=== PATIENT | male | born 1945 | race Caucasian/White ===

== ENCOUNTER → 2018-07-15 | Day surgery (SDC) | payer MEDICARE ==
[~2018-07-15] MED LIST: ASPIRIN325 M2 PO; ATORVASTATIN CA20 MG PO; FENTANYL CITRATE/PF 100MCG/2 ML INJ ONE; FLAX SEED OIL; HUMALOG MI100 UNIT/4 SC; LEVEMIR SC; LISINOPRIL10 MG PO; METOPROLOL; MIDAZOLAM HCL 2 MG/2 ML VIAL ONE; MOMETASONE FURO15 G1 TOP; MONTELUKAST SOD10 MG PO; MULTIVITAMIN1 EAC2 PO; OMEGA 3; OMEGA-31000 M1; OR PHACO EYE KIT ONE; PREOP PHACO EYE KIT ONE; VITAMIN B12 PO; VITAMIN C; Z.0.CO-GESIC 5-5001 PO; Z.0.FUROSEMIDE40 MG PO; Z.0.GLIMEPIRIDE4 MG PO; Z.0.LISINOPRIL2.5 MG PO; Z.0.METOPROLOL TART2 PO; Z.0.OMEPRAZOLE20 M1 PO; Z.0.SIMVASTATIN20 MG PO; Z.0.VITAMIN C1000 M2 PO; [UNRECOGNIZED DRUG - OTHER] PO; probiotic PO
--- OUTSIDE RECORDS SUMMARY | 2018-07-15 12:55 | XMS REPORT ---
Author Author [facility] Address Unknown Phone Unavailable Care Team Providers Care Personal Insurance Advisor Name Role Phone Unavailable Unavailable Payers Payer Name Policy Type Policy Number Effective Date Expiration Date Problems This patient has no known problems. Allergies, Adverse Reactions, Alerts Allergy Name Allergy Type Status Severity Reaction(s) Onset Date Inactive Date Treating Clinician Comments sulfamethoxazole DA Active [facility] 2012-05-14 00:00:00 trimethoprim DA Active [facility] 2012-05-14 00:00:00 latex DA Active [place] 2012-05-14 00:00:00 Medications This patient has no known medications.
[2018-07-15 15:00] VITALS: BP 130/51
== END | disposition home or self-care (01) ==
LOC: OR 12:51
PROVIDERS: ATTEND Ophthalmology
DX: H25.11 Age-related nuclear cataract, right eye (principal); I25.810 Atherosclerosis of coronary artery bypass graft(s) without angina pectoris; I25.2 Old myocardial infarction; E11.9 Type 2 diabetes mellitus without complications; K28.9 Gastrojejunal ulcer, unspecified as acute or chronic, without hemorrhage or perforation; K21.9 Gastro-esophageal reflux disease without esophagitis; I49.3 Ventricular premature depolarization; I11.0 Hypertensive heart disease with heart failure; I50.9 Heart failure, unspecified; R06.09 Other forms of dyspnea; N20.0 Calculus of kidney; K75.9 Inflammatory liver disease, unspecified; F41.9 Anxiety disorder, unspecified; Z79.82 Long term (current) use of aspirin; Z79.4 Long term (current) use of insulin; Z95.1 Presence of aortocoronary bypass graft
CPT/HCPCS: 36415; 66984; 82948; J2250; V2632

== ENCOUNTER → 2018-07-29 | Day surgery (SDC) | payer MEDICARE, OTHER ==
[2018-07-29 12:20] VITALS: BP 126/72
== END | disposition home or self-care (01) ==
LOC: OR 15:06
PROVIDERS: ATTEND Ophthalmology
DX: H25.12 Age-related nuclear cataract, left eye (principal); E11.9 Type 2 diabetes mellitus without complications; I11.0 Hypertensive heart disease with heart failure; I50.9 Heart failure, unspecified; I25.810 Atherosclerosis of coronary artery bypass graft(s) without angina pectoris; I25.2 Old myocardial infarction; Z79.82 Long term (current) use of aspirin; Z79.4 Long term (current) use of insulin; Z95.1 Presence of aortocoronary bypass graft
CPT/HCPCS: 36415; 66984; 82948; J2250

== ENCOUNTER → 2021-01-17 | Day surgery (SDC) | payer MEDICARE ==
[2021-01-12 14:29] LABS: BASOPHILS % 0.5 % (0.0-1.0); EOSINOPHILS # (AUTO) 0.3 (0.0-0.4); EOSINOPHILS % 3.2 % (0.0-6.0); HEMATOCRIT 43.7 % (38.2-49.6); HEMOGLOBIN 13.8 g/dL (14.0-18.0); LYMPHOCYTES # (AUTO) 0.7 (1.0-3.2); MEAN CORPUSCULAR HEMOGLOBIN 31.4 pg (28-32); MEAN CORPUSCULAR HGB CONC 31.6 g/dL (31-35); MEAN CORPUSCULAR VOLUME 99.3 fL (81-99); MONOCYTES # (AUTO) 0.9 (0.2-0.8); MONOCYTES % 11.4 % (4.4-11.3); NEUTROPHILS # (AUTO) 6.2 (2.1-6.9); NEUTROPHILS % 75.8 % (38.7-80.0); PLATELET COUNT 169 x10e3/uL (140-360); RED CELL DISTRIBUTION WIDTH 13.7 % (11.7-14.4)
[2021-01-12 14:39] LABS: INR 1.03; PROTHROMBIN TIME 13.7 seconds (11.9-14.5)
[2021-01-12 14:46] LABS: ALBUMIN 3.6 g/dL (3.5-5.0); ALBUMIN/GLOBULIN RATIO 1.1 (0.8-2.0); ANION GAP 12.9 mmol/L (8-16); CALCIUM 9.1 mg/dL (8.4-10.2); CREATININE, SERUM 1.39 mg/dL (0.72-1.25); POTASSIUM 5.9 mmol/L (3.5-5.1)
[~2021-01-17] VITALS: Ht 182.9 cm; Wt 100.2 kg
[2021-01-17] VITALS (13 sets, daily range): BP systolic 107–157; BP diastolic 57–97
[~2021-01-17] MED LIST changes: +AMLODIPINE BESYL5 MG PO; +CICLOPIROX 8%34.6 ML; +HEPARIN SOD/SOD CHLORIDE 2,000 ML ONE; +HUMULIN 70100 UNIT/3 SQ; +IOPAMIDOL 370 MG/ML 200 ML INFUS..BTL INJ ONE; +LEVEMIR100 UNIT/1 SQ; +LIDOCAINE HCL 2% LOCAL 20 ML VIAL ONE; +LIPITOR20 MG PO; +LISINOPRIL40 MG PO; +METOPROLOL TAR100 MG PO; -OR PHACO EYE KIT ONE; -PREOP PHACO EYE KIT ONE; +SODIUM CHLORIDE 0.9% 1000ML 1,000 ML ONE; +ZETIA10 MG PO
== END | disposition home or self-care (01) ==
LOC: CATH LAB 08:04
PROVIDERS: ATTEND Internal Medicine Cardiovascular Disease
DX: I25.810 Atherosclerosis of coronary artery bypass graft(s) without angina pectoris (principal); Z95.1 Presence of aortocoronary bypass graft; R94.39 Abnormal result of other cardiovascular function study; I25.2 Old myocardial infarction; E78.5 Hyperlipidemia, unspecified; I10 Essential (primary) hypertension; R00.1 Bradycardia, unspecified; R09.89 Other specified symptoms and signs involving the circulatory and respiratory systems; E11.9 Type 2 diabetes mellitus without complications; Z01.812 Encounter for preprocedural laboratory examination; Z20.822 Contact with and (suspected) exposure to COVID-19; Z79.82 Long term (current) use of aspirin; Z79.4 Long term (current) use of insulin; Z79.899 Other long term (current) drug therapy; Z68.31 Body mass index [BMI] 31.0-31.9, adult; Z82.49 Family history of ischemic heart disease and other diseases of the circulatory system; Z83.3 Family history of diabetes mellitus
CPT/HCPCS: 36415 ×2; 80053; 82948; 85025; 85610; 93459; C1769; C1887; C1894; J2001; J2250; J3010; J7030; Q9967; U0002; 99152; 99153

== ENCOUNTER 2021-07-12 09:24 | Observation (INO) | payer MEDICARE ==
[~2021-07-12] VITALS: Ht 182.9 cm; Wt 100.2 kg
[~2021-07-12 09:24] MED LIST changes: -FENTANYL CITRATE/PF 100MCG/2 ML INJ ONE; -HEPARIN SOD/SOD CHLORIDE 2,000 ML ONE; -IOPAMIDOL 370 MG/ML 200 ML INFUS..BTL INJ ONE; -LIDOCAINE HCL 2% LOCAL 20 ML VIAL ONE; -MIDAZOLAM HCL 2 MG/2 ML VIAL ONE; -SODIUM CHLORIDE 0.9% 1000ML 1,000 ML ONE
[2021-07-12] MEDS ORDERED: ASPIRIN 81 MG CHEW TAB PO ONE (09:45)
[2021-07-12 10:01] LABS: BASOPHILS % 0.5 % (0.0-1.0); EOSINOPHILS # (AUTO) 0.4 (0.0-0.4); EOSINOPHILS % 5.3 % (0.0-6.0); HEMATOCRIT 32.3 % (38.2-49.6); HEMOGLOBIN 9.7 g/dL (14.0-18.0); LYMPHOCYTES # (AUTO) 0.6 (1.0-3.2); LYMPHOCYTES % 8.3 % (18.0-39.1); MEAN CORPUSCULAR HEMOGLOBIN 26.7 pg (28-32); MONOCYTES % 12.4 % (4.4-11.3); NEUTROPHILS # (AUTO) 5.5 (2.1-6.9); NEUTROPHILS % 72.1 % (38.7-80.0); PLATELET COUNT 214 x10e3/uL (140-360); RED BLOOD COUNT 3.63 x10e6/uL (4.3-5.7); RED CELL DISTRIBUTION WIDTH 14.5 % (11.7-14.4)
[2021-07-12 10:22] LABS: ALBUMIN 3.6 g/dL (3.5-5.0); ALBUMIN/GLOBULIN RATIO 0.9 (0.8-2.0); ANION GAP 14.7 mmol/L (8-16); CREATININE, SERUM 1.5 mg/dL (0.72-1.25); POTASSIUM 5.7 mmol/L (3.5-5.1)
[2021-07-12] MEDS ORDERED: SODIUM BICARBONATE 8.4% INJ 50 ML SYR IV STA (10:44)
[2021-07-12] MEDS ORDERED: SODIUM CHLORIDE 0.9% 1000ML 1,000 ML IV SCH (10:45)
[2021-07-12] MEDS ORDERED: SOD POLYSTYRENE SULFONATE SUSP 15 GM/60 ML BTL PO ONE (10:45)
[2021-07-12] MEDS ORDERED: CALCIUM GLUC 1 G/50 ML NACL 50 ML IV ONE (11:00)
[2021-07-12 13:02] VITALS: BP 141/59
[2021-07-12] MEDS ORDERED: CLOPIDOGREL75 MG PO (13:12)
[2021-07-12] MEDS ORDERED: FUROSEMIDE40 MG PO (13:12)
[2021-07-12 13:23] VITALS: BP 141/59
[2021-07-12] MEDS ORDERED: SINGULAIR10 MG PO (13:53)
[2021-07-12 14:10] VITALS: BP 141/59
[2021-07-12 15:40] VITALS: BP 142/55
[2021-07-12] MEDS: METOPROLOL TARTRATE 50 MG TAB PO SCH (18:03)
[2021-07-12 18:47] LABS: % IRON SATURATION 4 % (15-50); IRON 18 ug/dL (65-175); TOTAL IRON BINDING CAPACITY 511 ug/dL (261-478); TRANSFERRIN 365 mg/dL (174-364)
[2021-07-12 20:00] VITALS: BP 141/51
[2021-07-12] MEDS ORDERED: ATORVASTATIN 40 MG TAB PO SCH (21:00)
[2021-07-12] MEDS: PANTOPRAZOLE SOD 40 MG TABEC PO SCH (21:20)
[2021-07-12] MEDS ORDERED: DEXTROSE 50% SYRINGE 50 ML IV PRN (23:00)
[2021-07-12 23:54] VITALS: BP 141/51
[2021-07-13] VITALS: BP 139/49
[2021-07-13 04:00] VITALS: BP 124/53
[2021-07-13 05:33] LABS: BASOPHILS % 0.4 % (0.0-1.0); EOSINOPHILS # (AUTO) 0.4 (0.0-0.4); EOSINOPHILS % 5.5 % (0.0-6.0); HEMATOCRIT 28.6 % (38.2-49.6); HEMOGLOBIN 8.5 g/dL (14.0-18.0); LYMPHOCYTES # (AUTO) 0.6 (1.0-3.2); LYMPHOCYTES % 8.1 % (18.0-39.1); MEAN CORPUSCULAR HEMOGLOBIN 26.3 pg (28-32); MEAN CORPUSCULAR HGB CONC 29.7 g/dL (31-35); MEAN CORPUSCULAR VOLUME 88.5 fL (81-99); MONOCYTES # (AUTO) 0.9 (0.2-0.8); MONOCYTES % 13.7 % (4.4-11.3); NEUTROPHILS # (AUTO) 4.9 (2.1-6.9); PLATELET COUNT 186 x10e3/uL (140-360); RED BLOOD COUNT 3.23 x10e6/uL (4.3-5.7); RED CELL DISTRIBUTION WIDTH 14.2 % (11.7-14.4)
[2021-07-13 06:07] LABS: ALBUMIN/GLOBULIN RATIO 0.9 (0.8-2.0); ANION GAP 10.6 mmol/L (8-16); CALCIUM 8.6 mg/dL (8.4-10.2); CHOL/HDL RATIO 3.6 (3.9-4.7); CREATININE, SERUM 0.99 mg/dL (0.72-1.25); MAGNESIUM 1.9 MG/DL (1.3-2.1); PHOSPHORUS 2.9 MG/DL (2.3-4.7); POTASSIUM 4.6 mmol/L (3.5-5.1)
[2021-07-13 06:30] LABS: THYROID STIMULATING HORMONE 1.217 uIU/mL (0.350-4.940)
[2021-07-13] MEDS: INSULIN LISPRO 100 UNIT/1 ML 3ML VIAL SQ SCH ×2 (07:30→11:30)
[2021-07-13] MEDS: PANTOPRAZOLE SOD 40 MG TABEC PO SCH (08:30)
[2021-07-13 08:58] VITALS: BP 137/52
[2021-07-13 09:00] VITALS: BP 137/52
[2021-07-13] MEDS ORDERED: AMLODIPINE BESYLATE 10 MG TAB PO SCH (09:00)
[2021-07-13] MEDS ORDERED: EZETIMIBE 10 MG TAB PO SCH (09:00)
[2021-07-13] MEDS ORDERED: FUROSEMIDE 40 MG TAB PO SCH (09:00)
[2021-07-13] MEDS ORDERED: MONTELUKAST SODIUM 10 MG TAB PO SCH (09:00)
[2021-07-13] MEDS ORDERED: CLOPIDOGREL BISULFATE 75 MG TAB PO SCH (09:00)
[2021-07-13] MEDS ORDERED: ASPIRIN 325 MG TAB EC PO SCH (09:00)
[2021-07-13] MEDS: METOPROLOL TARTRATE 50 MG TAB PO SCH (09:13)
[2021-07-13] MEDS ORDERED: AMIODARONE HCL 200 MG TAB PO SCH (10:00)
[2021-07-13 12:38] VITALS: BP 131/57
[2021-07-13] MEDS ORDERED: FERROUS SULFAT325 MG PO (14:46)
[2021-07-13] MEDS ORDERED: PROTONIX40 MG/ML PO (14:46)
[2021-07-13] MEDS ORDERED: AMIODARONE HCL200 MG PO (14:46)
[2021-07-13] MEDS ORDERED: REGLAN10 MG PO (14:46)
== END 2021-07-13 16:40 | disposition home or self-care (01) ==
LOC: ER 09:34 → INTOOBSV 10:45 → ERHOLD 10:45 → MED/SURG3 12:08
PROVIDERS: ADMIT Internal Medicine; ATTEND Internal Medicine
DX: R00.8 Other abnormalities of heart beat (principal); R07.89 Other chest pain; I25.2 Old myocardial infarction; I25.10 Atherosclerotic heart disease of native coronary artery without angina pectoris; I11.9 Hypertensive heart disease without heart failure; R13.10 Dysphagia, unspecified; I65.21 Occlusion and stenosis of right carotid artery; D50.9 Iron deficiency anemia, unspecified; E11.9 Type 2 diabetes mellitus without complications; E78.5 Hyperlipidemia, unspecified; R00.1 Bradycardia, unspecified; K21.9 Gastro-esophageal reflux disease without esophagitis; E87.6 Hypokalemia; Z95.1 Presence of aortocoronary bypass graft; Z95.5 Presence of coronary angioplasty implant and graft; Z79.82 Long term (current) use of aspirin; Z79.4 Long term (current) use of insulin
CPT/HCPCS: 36415 ×2; 71045; 80053 ×2; 80061; 82948 ×2; 83036; 83540; 83690; 83735 ×2; 83880; 84100; 84443; 84466; 84484 ×2; 85025 ×2; 92526; 92610; 93005 ×2; 93880; 94799; 99284; G0378 ×2; J7030; S0164 ×2; U0002

== ENCOUNTER 2022-06-15 09:07 | Inpatient (IN) | payer MEDICARE ==
[~2022-06-15] VITALS: Ht 182.9 cm; Wt 89.2 kg
[~2022-06-15 09:07] MED LIST changes: +AMIODARONE HCL200 MG PO; +CLOPIDOGREL75 MG PO; +FERROUS SULFAT325 MG PO; +FUROSEMIDE40 MG PO; +PROTONIX40 MG/ML PO; +REGLAN10 MG PO; +SINGULAIR10 MG PO
[2022-06-15] MEDS ORDERED: SODIUM CHLORIDE FLUSH 10 ML SYR IV PRN (10:15)
[2022-06-15 11:05] LABS: BASOPHILS # (AUTO) 0.1 (0.0-0.1); BASOPHILS % 0.7 % (0.0-1.0); EOSINOPHILS # (AUTO) 0.3 (0.0-0.4); EOSINOPHILS % 3.6 % (0.0-6.0); HEMATOCRIT 31.5 % (38.2-49.6); HEMOGLOBIN 9.7 g/dL (14.0-18.0); LYMPHOCYTES # (AUTO) 0.5 (1.0-3.2); LYMPHOCYTES % 5.7 % (18.0-39.1); MEAN CORPUSCULAR HEMOGLOBIN 29.9 pg (28-32); MEAN CORPUSCULAR HGB CONC 30.8 g/dL (31-35); MEAN CORPUSCULAR VOLUME 97.2 fL (81-99); MONOCYTES # (AUTO) 0.9 (0.2-0.8); NEUTROPHILS % 79.7 % (38.7-80.0); PLATELET COUNT 208 x10e3/uL (140-360); RED BLOOD COUNT 3.24 x10e6/uL (4.3-5.7); RED CELL DISTRIBUTION WIDTH 14.9 % (11.7-14.4)
[2022-06-15] MEDS ORDERED: CEFTRIAXONE 1 GM VIAL IM ONE (11:30)
[2022-06-15 13:00] LABS: ALANINE AMINOTRANSFERASE 313 IU/L (0-55); ALBUMIN/GLOBULIN RATIO 0.8 (0.8-2.0); ALKALINE PHOSPHATASE 136 IU/L (40-150); ANION GAP 13.2 mmol/L (8-16); BLOOD UREA NITROGEN 52 mg/dL (7-26); BUN/CREATININE RATIO 35 (6-25); CALCIUM 9.2 mg/dL (8.4-10.2); CARBON DIOXIDE 21 mmol/L (22-29); CHLORIDE 106 mmol/L (98-107); CREATININE, SERUM 1.47 mg/dL (0.72-1.25); GLUCOSE 106 mg/dL (74-118); SODIUM 134 mmol/L (136-145)
[2022-06-15] MEDS ORDERED: LIDOCAINE 1% 10 ML MULTIDOSE VIAL IJ ONE (13:00)
[2022-06-15 13:09] LABS: POTASSIUM 6.2 mmol/L (3.5-5.1)
[2022-06-15] MEDS ORDERED: DEXTROSE 50% SYRINGE 50 ML IV STA (13:11)
[2022-06-15] MEDS ORDERED: INSULIN REGULAR, HUMAN 100 UNIT/1 ML IV STA (13:11)
[2022-06-15] MEDS ORDERED: CALCIUM GLUC 1 G/50 ML NACL 50 ML IV ONE (14:15)
[2022-06-15 16:43] LABS: ANION GAP 11.5 mmol/L (8-16); CALCIUM 9.4 mg/dL (8.4-10.2); CREATININE, SERUM 1.48 mg/dL (0.72-1.25)
[2022-06-15 16:44] LABS: POTASSIUM 5.5 mmol/L (3.5-5.1)
[2022-06-15 17:07] VITALS: BP 162/66
[2022-06-15 17:08] VITALS: BP 162/66
[2022-06-15 17:12] VITALS: BP 162/66
[2022-06-15] MEDS ORDERED: LACTULOSE SYRUP 20 GM/30 ML UDC PO STA (17:27)
[2022-06-15] MEDS ORDERED: SOD POLYSTYRENE SULFONATE SUSP 15 GM/60 ML BTL PO ONE (17:45)
[2022-06-15] MEDS ORDERED: FUROSEMIDE INJ 10 MG/ML 4 ML VIAL IV ONE (17:45)
[2022-06-15 17:59] LABS: ANION GAP 13.6 mmol/L (8-16); CALCIUM 9.5 mg/dL (8.4-10.2); CREATININE, SERUM 1.46 mg/dL (0.72-1.25)
[2022-06-15 18:04] LABS: POTASSIUM 5.6 mmol/L (3.5-5.1)
[2022-06-15 18:22] LABS: CREATINE KINASE MB 2.3 ng/mL (0-5.0)
[2022-06-15 20:00] VITALS: BP 134/55
[2022-06-15 21:21] VITALS: BP 134/55
[2022-06-16 00:57] VITALS: BP 153/67
[2022-06-16 05:46] VITALS: BP 133/47
[2022-06-16 06:10] LABS: BASOPHILS % 0.3 % (0.0-1.0); EOSINOPHILS # (AUTO) 0.4 (0.0-0.4); EOSINOPHILS % 4.2 % (0.0-6.0); HEMATOCRIT 29.1 % (38.2-49.6); HEMOGLOBIN 8.9 g/dL (14.0-18.0); LYMPHOCYTES # (AUTO) 0.4 (1.0-3.2); LYMPHOCYTES % 4.2 % (18.0-39.1); MEAN CORPUSCULAR HEMOGLOBIN 29.3 pg (28-32); MEAN CORPUSCULAR HGB CONC 30.6 g/dL (31-35); MEAN CORPUSCULAR VOLUME 95.7 fL (81-99); MONOCYTES # (AUTO) 1.1 (0.2-0.8); MONOCYTES % 12.4 % (4.4-11.3); NEUTROPHILS # (AUTO) 6.9 (2.1-6.9); NEUTROPHILS % 78.6 % (38.7-80.0); PLATELET COUNT 169 x10e3/uL (140-360); RED BLOOD COUNT 3.04 x10e6/uL (4.3-5.7); RED CELL DISTRIBUTION WIDTH 15.2 % (11.7-14.4)
[2022-06-16 06:30] LABS: ALBUMIN 2.6 g/dL (3.5-5.0); ALBUMIN/GLOBULIN RATIO 0.8 (0.8-2.0); CALCIUM 8.7 mg/dL (8.4-10.2); CREATININE, SERUM 1.36 mg/dL (0.72-1.25)
[2022-06-16 06:51] LABS: CREATINE KINASE MB 1.6 ng/mL (0-5.0)
[2022-06-16] MEDS ORDERED: CEFTRIAXONE 1 GM VIAL ONE (08:33)
[2022-06-16 09:07] VITALS: BP 153/48
[2022-06-16] MEDS: AZITHROMYCIN 250 MG TAB PO SCH (09:32)
[2022-06-16 12:34] VITALS: BP 143/43
[2022-06-16] MEDS ORDERED: SODIUM CHLORIDE 0.9% 250ML 250 ML ONE (13:38)
[2022-06-16 14:53] VITALS: BP 128/49
[2022-06-16 15:15] LABS: CREATINE KINASE MB 1.5 ng/mL (0-5.0)
[2022-06-16] MEDS: PANTOPRAZOLE SOD 40 MG TABEC PO SCH (17:04)
[2022-06-16] MEDS ORDERED: DEXTROSE 50% SYRINGE 50 ML IV PRN (17:30)
[2022-06-16 20:00] VITALS: BP_SYST 122; BP_SYST 133; BP_DIAS 37; BP_DIAS 48
[2022-06-16] MEDS: ATORVASTATIN 20 MG TAB PO SCH (20:49)
[2022-06-16] MEDS: INSULIN REGULAR, HUMAN 100 UNIT/1 ML SQ SCH (20:52)
[2022-06-17] VITALS (7 sets, daily range): BP systolic 129–151; BP diastolic 48–69
[2022-06-17 07:12] LABS: BASOPHILS % 0.2 % (0.0-1.0); EOSINOPHILS # (AUTO) 0.5 (0.0-0.4); HEMATOCRIT 27.2 % (38.2-49.6); HEMOGLOBIN 8.4 g/dL (14.0-18.0); LYMPHOCYTES # (AUTO) 0.5 (1.0-3.2); LYMPHOCYTES % 5.8 % (18.0-39.1); MEAN CORPUSCULAR HGB CONC 30.9 g/dL (31-35); MEAN CORPUSCULAR VOLUME 97.1 fL (81-99); MONOCYTES % 11.6 % (4.4-11.3); NEUTROPHILS # (AUTO) 6.5 (2.1-6.9); NEUTROPHILS % 75.9 % (38.7-80.0); PLATELET COUNT 168 x10e3/uL (140-360); RED CELL DISTRIBUTION WIDTH 15.2 % (11.7-14.4)
[2022-06-17 07:36] LABS: ALBUMIN 2.3 g/dL (3.5-5.0); ALBUMIN/GLOBULIN RATIO 0.7 (0.8-2.0); CALCIUM 8.6 mg/dL (8.4-10.2); CREATININE, SERUM 1.53 mg/dL (0.72-1.25)
[2022-06-17] MEDS: INSULIN REGULAR, HUMAN 100 UNIT/1 ML SQ SCH ×4 (09:09→21:52)
[2022-06-17] MEDS: CLOPIDOGREL BISULFATE 75 MG TAB PO SCH (09:12)
[2022-06-17] MEDS: AMLODIPINE BESYLATE 5 MG TAB PO SCH (09:12)
[2022-06-17] MEDS: AZITHROMYCIN 250 MG TAB PO SCH (09:12)
[2022-06-17] MEDS: PANTOPRAZOLE SOD 40 MG TABEC PO SCH ×2 (09:13→17:17)
[2022-06-17] MEDS: FERROUS SULFATE 325 MG TAB PO SCH (09:13)
[2022-06-17] MEDS: AMIODARONE HCL 200 MG TAB PO SCH ×2 (09:13→17:18)
[2022-06-17] MEDS: ATORVASTATIN 20 MG TAB PO SCH (21:50)
[2022-06-18] VITALS (8 sets, daily range): BP systolic 137–168; BP diastolic 51–65
[2022-06-18 06:49] LABS: BASOPHILS % 0.2 % (0.0-1.0); EOSINOPHILS # (AUTO) 0.6 (0.0-0.4); EOSINOPHILS % 6.7 % (0.0-6.0); HEMATOCRIT 28.6 % (38.2-49.6); HEMOGLOBIN 8.8 g/dL (14.0-18.0); LYMPHOCYTES # (AUTO) 0.4 (1.0-3.2); LYMPHOCYTES % 4.8 % (18.0-39.1); MEAN CORPUSCULAR HEMOGLOBIN 29.3 pg (28-32); MEAN CORPUSCULAR HGB CONC 30.8 g/dL (31-35); MEAN CORPUSCULAR VOLUME 95.3 fL (81-99); MONOCYTES % 11.7 % (4.4-11.3); NEUTROPHILS # (AUTO) 6.5 (2.1-6.9); NEUTROPHILS % 76.1 % (38.7-80.0); PLATELET COUNT 186 x10e3/uL (140-360); RED CELL DISTRIBUTION WIDTH 15.4 % (11.7-14.4)
[2022-06-18 07:08] LABS: CALCIUM 8.7 mg/dL (8.4-10.2); CREATININE, SERUM 1.28 mg/dL (0.72-1.25)
[2022-06-18] MEDS: PANTOPRAZOLE SOD 40 MG TABEC PO SCH ×2 (07:30→16:37)
[2022-06-18] MEDS ORDERED: ONDANSETRON HCL INJ 2MG/ML 2ML 2 MG/ML VIAL IV PRN (08:45)
[2022-06-18] MEDS ORDERED: ACETAMINOPHEN 325 MG TAB PO PRN (08:45)
[2022-06-18] MEDS ORDERED: POLYETHYLENE GLYCOL 3350 17 GM PACK PO PRN (08:45)
[2022-06-18] MEDS ORDERED: HYDRALAZINE HCL 20 MG/ML VIAL IV PRN (08:45)
[2022-06-18] MEDS: CLOPIDOGREL BISULFATE 75 MG TAB PO SCH (09:00)
[2022-06-18] MEDS: AMIODARONE HCL 200 MG TAB PO SCH ×2 (09:00→16:38)
[2022-06-18] MEDS: FERROUS SULFATE 325 MG TAB PO SCH (09:00)
[2022-06-18] MEDS: AMLODIPINE BESYLATE 5 MG TAB PO SCH (09:00)
[2022-06-18] MEDS: AZITHROMYCIN 250 MG TAB PO SCH (09:00)
[2022-06-18] MEDS: INSULIN REGULAR, HUMAN 100 UNIT/1 ML SQ SCH ×4 (10:54→21:33)
[2022-06-18] MEDS: DOCUSATE SODIUM 100 MG CAP PO SCH ×2 (10:59→16:38)
[2022-06-18] MEDS: ATORVASTATIN 20 MG TAB PO SCH (20:26)
[2022-06-19] VITALS: BP 134/52
[2022-06-19] MEDS ORDERED: TRAMADOL HCL 50 MG TAB PO PRN
[2022-06-19 04:00] VITALS: BP 152/60
[2022-06-19] MEDS: INSULIN REGULAR, HUMAN 100 UNIT/1 ML SQ SCH ×3 (07:30→16:30)
[2022-06-19 09:07] VITALS: BP 170/65
[2022-06-19] MEDS: FERROUS SULFATE 325 MG TAB PO SCH (09:07)
[2022-06-19] MEDS: AMLODIPINE BESYLATE 5 MG TAB PO SCH (09:08)
[2022-06-19] MEDS: PANTOPRAZOLE SOD 40 MG TABEC PO SCH ×2 (09:08→17:01)
[2022-06-19] MEDS: CLOPIDOGREL BISULFATE 75 MG TAB PO SCH (09:08)
[2022-06-19] MEDS: DOCUSATE SODIUM 100 MG CAP PO SCH ×2 (09:08→17:01)
[2022-06-19] MEDS: AMIODARONE HCL 200 MG TAB PO SCH ×2 (09:08→17:01)
[2022-06-19] MEDS: AZITHROMYCIN 250 MG TAB PO SCH (09:08)
[2022-06-19] MEDS ORDERED: TRAMADOL HCL 50 MG TAB PO ONE (09:45)
[2022-06-19 11:44] VITALS: BP 143/63
[2022-06-19] MEDS ORDERED: ACETAMINOPHEN325 M1 PO (14:23)
[2022-06-19] MEDS ORDERED: FUROSEMIDE20 MG PO (14:23)
[2022-06-19] MEDS ORDERED: ULTRAM 50MG50 MG PO (14:49)
[2022-06-19] MEDS ORDERED: AZITHROMYCIN250 MG PO (15:14)
[2022-06-19] MEDS ORDERED: CEFUROXIME250 MG PO (15:14)
[2022-06-19] MEDS ORDERED: ONDANSETRON HCL 4 MG ORAL DISINTEGRATING TAB PO PRN (15:30)
[2022-06-19 16:00] VITALS: BP 146/60
== END 2022-06-19 19:06 | disposition home or self-care (01) | DRG 291 ==
LOC: ER 10:01 → ERHOLD 13:08 → MED/SURG2 16:50
PROVIDERS: ADMIT Internal Medicine; ATTEND Internal Medicine
DX: I13.0 Hypertensive heart and chronic kidney disease with heart failure and stage 1 through stage 4 chronic kidney disease, or unspecified chronic kidney disease (principal); I50.43 Acute on chronic combined systolic (congestive) and diastolic (congestive) heart failure; J18.9 Pneumonia, unspecified organism; N17.9 Acute kidney failure, unspecified; I48.20 Chronic atrial fibrillation, unspecified; N18.30 Chronic kidney disease, stage 3 unspecified; E11.22 Type 2 diabetes mellitus with diabetic chronic kidney disease; I25.2 Old myocardial infarction; E78.5 Hyperlipidemia, unspecified; K21.9 Gastro-esophageal reflux disease without esophagitis; I25.10 Atherosclerotic heart disease of native coronary artery without angina pectoris; D63.1 Anemia in chronic kidney disease; E87.5 Hyperkalemia; K74.60 Unspecified cirrhosis of liver; I44.0 Atrioventricular block, first degree; N40.1 Benign prostatic hyperplasia with lower urinary tract symptoms; R33.9 Retention of urine, unspecified; M25.562 Pain in left knee; G89.29 Other chronic pain; R74.01 Elevation of levels of liver transaminase levels; Z86.73 Personal history of transient ischemic attack (TIA), and cerebral infarction without residual deficits; Z95.1 Presence of aortocoronary bypass graft; Z95.5 Presence of coronary angioplasty implant and graft; Z74.01 Bed confinement status; Z79.82 Long term (current) use of aspirin; Z79.4 Long term (current) use of insulin; Z20.822 Contact with and (suspected) exposure to COVID-19
CPT/HCPCS: 0223U; 36415; 36555; 36556; 51700; 71045; 74230; 80048; 80053; 82550; 82553; 82948; 83880; 84484; 85025; 87040; 93005; 94760; 94799; 99284; J0456; J0610; J0696; J1817; J1940; J2405; J7050; J7799